=== PATIENT | female | born 1950 | race Caucasian/White ===

== ENCOUNTER → 2016-09-01 | Outpatient (CLI) | payer OTHER ==
[~2016-09-01] MED LIST: BP MED; CELEXA10 MG; LOPRESSOR50; NORCO 5-325 TA1 EACH PO; PRILOSEC20 MG PO; SIMVASTATIN40 MG; XARELTO15 MG PO
== END ==
LOC: ULTRA 12:09
DX: R16.1 Splenomegaly, not elsewhere classified (principal); R10.2 Pelvic and perineal pain; R10.9 Unspecified abdominal pain

== ENCOUNTER → 2017-06-22 | Outpatient (CLI) | payer OTHER | LOC: RAD 01:12 | DX: Z12.31 Encounter for screening mammogram for malignant neoplasm of breast (principal) ==

== ENCOUNTER → 2018-06-25 | Outpatient (CLI) | payer OTHER | LOC: RAD 01:50 | DX: Z12.31 Encounter for screening mammogram for malignant neoplasm of breast (principal) ==

== ENCOUNTER → 2019-05-02 | Outpatient (CLI) | payer OTHER ==
[~2019-05-02] VITALS: Ht 160 cm; Wt 72.6 kg
[~2019-05-02] MED LIST changes: +CALCIUM CIT 201 EACH PO; +CO Q-10100 MG PO; -LOPRESSOR50; +LOPRESSOR50 PO; +MAGOX 400400 MG PO; +MELATONIN3 MG PO; +METOPROLOL SUCC50 MG PO; +PROZAC10 MG PO; -SIMVASTATIN40 MG; +SIMVASTATIN40 MG PO; +SUPER B-50 COM1 EACH PO; +VITAMIN B-121000 MCG PO; +VITAMIN B-6100 MG PO; +VITAMIN D-32000 UNIT PO; +VITAMINC500 PO
--- NOTE | 2019-05-03 13:26 | P ---
[facility] [place] [address] PROCEDURE REPORT Name: TIMBO XIONG [id number] Admission: 05/02/19 Attend Phys: Frandy Maradiaga MD Discharge: Date of : 54 Report #: [id number] THIS REPORT FOR: //name// CC: Frandy Alvarado DATE OF SERVICE: 05/02/2019 OUTPATIENT COLONOSCOPY REPORT BRIEF HISTORY: The patient is a 68-year-old woman with a history of colon polyps for high risk screening colonoscopy. Last exam was about 5 years ago. PREOPERATIVE DIAGNOSIS: High risk screening colonoscopy. POSTOPERATIVE DIAGNOSES: 1. Flat polyp, proximal ascending colon. 2. Mild diverticulosis coli. MEDICATIONS: Deep sedation with propofol per anesthesia. SPECIMEN: Polyp from proximal ascending colon. ESTIMATED BLOOD LOSS: 3 mL. PROCEDURE: Colonoscopy to cecum and terminal ileum with snare polypectomy. FINDINGS: Prior to propofol sedation, procedure of colonoscopy discussed with the patient as well as potential risks and its complications. She indicates she understands and desires to proceed. DESCRIPTION OF PROCEDURE: With the patient in left lateral decubitus position, digital examination was completed, which revealed no abnormalities. Subsequently, the Olympus video colonoscope was introduced into the rectum, advanced under direct vision to the cecum. This was done with minimal difficulty. The cecum was identified by the ileocecal valve and the appendiceal orifice. I was able to advance the scope across the ileocecal valve and visualize the distal segment of the terminal ileum, which was unremarkable. At that point, the scope was slowly withdrawn and careful circumferential views obtained including retroflexing the scope in the ascending colon. Upon slow withdrawal of the scope, the prep was good. The mucosa was within normal limits, normal vascular pattern, normal light reflex. In the very proximal ascending colon, a flat polyp, which was covered with mucus was seen on the edge of a fold. It was about 6 x 8 mm. It was removed by cold snare polypectomy and recovered. The scope was further withdrawn and no additional neoplastic lesions were seen in the remainder of the colon. As we withdrew the scope, an [facility] [address] [place] [address] PROCEDURE REPORT Name: TIMBO XIONG Room #: REG [facility]#: [id number] Admission: 05/02/19 Attend Phys: Frandy Maradiaga MD Discharge: Date of : 54 Report #: [id number] occasional scattered diverticulum was seen, but there is no evidence of diverticulitis. Scope was withdrawn in the rectum and no abnormalities were seen. Upon retroflexion, no abnormalities were seen. Scope was withdrawn. The patient tolerated the procedure well. CONDITION OF THE PATIENT UPON DISCHARGE: Following procedure, the patient drowsy, aroused, conversant and will be discharged home when fully ambulatory. INSTRUCTIONS TO THE PATIENT AND FAMILY AT THE TIME OF DISCHARGE: We will follow up on the path report of the polyp. However, given the proximal location of this polyp, even if it is a simple serrated polyp, I would suggest return in 5 years for high risk screening colonoscopy. The patient reports that since her last colonoscopy, she developed hepatic abscess. The etiology of the abscess was not clear. She does have a few diverticula. I only saw a couple totaled in her colon. She does not have extensive diverticular disease and there was no endoscopic evidence of diverticulitis at this time. Last colonoscopy was approximately 5 years ago. Withdrawal time from the cecum was 14 minutes 56 seconds. <ELECTRONICALLY SIGNED> By: Frandy Maradiaga MD 05/03/19 [id number] Frandy Maradiaga MD /nt
--- NOTE | 2019-05-03 19:06 | PATH ---
[facility] [address] [place] [address] PATHOLOGY RPT PROCEDURE Name: CALLIE XIONGN Room #: REG [facility] Enrique.#: [id number] Admission: 05/02/19 Date of : 54 Discharge: Report #: [id number] Path Case #: [id number] [facility] Accession Number: [id number] . 01 Material submitted: . colon - POLYP AT PROXIMAL ASCENDING. Modifiers: ascending, proximal . 01 Clinical history: . Hx polyps, colon polyps, diverticulosis . 02 Diagnosis: Polyp, at proximal ascending, endoscopic biopsy: - Sessile serrated polyp. - Negative for dysplasia. (IUV:pit; 05/03/2019) QTP/05/03/2019 . 02 Electronically signed: . Gisella Long MD, Pathologist NPI- [id number] . 01 Gross description: . The specimen is received in formalin, labeled "Callie Xiong, polyp at proximal ascending colon", is an elongated fragment of carmona soft tissue measuring 1.0 x 0.4 x 0.1 cm, inked black and serially sectioned. Entirely submitted in A1. ([facility]; 05/02/2019) SHS/SHS . 02 Pathologist provided ICD-10: K63.5 . 02 CPT . 592171 Specimen Comment: A courtesy copy of this report has been sent to Specimen Comment: [phone]. Specimen Comment: Report sent to Performed at: [address], [place] [id number] MD Randolph Contreras MD Phone: [phone] Performed at: [address] [id number] MD Gisella Long MD Phone: [phone]
== END | disposition home or self-care (01) ==
LOC: GI 06:53
DX: Z12.11 Encounter for screening for malignant neoplasm of colon (principal); Z86.010 Personal history of colon polyps; K63.5 Polyp of colon; K57.30 Diverticulosis of large intestine without perforation or abscess without bleeding; I10 Essential (primary) hypertension; E78.5 Hyperlipidemia, unspecified; Z98.890 Other specified postprocedural states; Z79.01 Long term (current) use of anticoagulants; Z88.2 Allergy status to sulfonamides; Z88.8 Allergy status to other drugs, medicaments and biological substances; Z86.711 Personal history of pulmonary embolism; Z79.899 Other long term (current) drug therapy
CPT/HCPCS: 62110; 62900

== ENCOUNTER → 2019-06-26 | Outpatient (CLI) | payer OTHER | LOC: RAD 08:24 | DX: Z12.31 Encounter for screening mammogram for malignant neoplasm of breast (principal) ==

== ENCOUNTER → 2019-06-26 | Outpatient (CLI) | payer OTHER | LOC: CAT 13:34 | DX: Z13.6 Encounter for screening for cardiovascular disorders (principal); E78.00 Pure hypercholesterolemia, unspecified; I25.10 Atherosclerotic heart disease of native coronary artery without angina pectoris ==

== ENCOUNTER → 2019-09-09 | Outpatient (CLI) | payer OTHER | LOC: SJCVCIMAG 11:19 | DX: I08.1 Rheumatic disorders of both mitral and tricuspid valves (principal); I48.0 Paroxysmal atrial fibrillation; I10 Essential (primary) hypertension; E78.5 Hyperlipidemia, unspecified; Z86.711 Personal history of pulmonary embolism ==

== ENCOUNTER → 2020-07-02 | Outpatient (CLI) | payer OTHER | LOC: BC 09:12 | PROVIDERS: ATTEND Obstetrics & Gynecology | DX: Z12.31 Encounter for screening mammogram for malignant neoplasm of breast (principal) ==

== ENCOUNTER → 2020-09-09 | Outpatient (CLI) | payer OTHER | LOC: SJCVC 09:48 | PROVIDERS: ATTEND Internal Medicine | DX: I10 Essential (primary) hypertension (principal); R00.1 Bradycardia, unspecified; E78.00 Pure hypercholesterolemia, unspecified; E78.5 Hyperlipidemia, unspecified; Z79.899 Other long term (current) drug therapy; Z86.711 Personal history of pulmonary embolism ==

== ENCOUNTER → 2021-07-12 | Outpatient (CLI) | payer OTHER | LOC: BC 10:25 | PROVIDERS: ATTEND Family Medicine | DX: Z12.31 Encounter for screening mammogram for malignant neoplasm of breast (principal) ==